=== PATIENT | male | born 1955 | race Hispanic/Latino ===

== ENCOUNTER → 2019-06-04 | Outpatient (CLI) | payer MEDICARE ==
--- NOTE | 2019-06-04 16:30 | Diagnostic Imaging Report ---
EXAM: Renal Ultrasound INDICATION: ^MICROSCOPIC HEMATURIA COMPARISON: None TECHNIQUE: Transverse and longitudinal images of the kidneys and bladder were obtained. FINDINGS: Right Kidney: Length: 12.0 cm Appearance: Normal echogenicity. Collecting system: No hydronephrosis Stones: None Cyst/Mass: None Left Kidney: Length: 11.8 cm Appearance: Normal echogenicity. Collecting system: No hydronephrosis Stones: None Cyst/Mass: None Bladder and Prostate: There is increased echogenicity and irregular appearance of the bladder mucosa without focal mass or stone. The prostate is enlarged, measuring 7.3 x 4.5 x 6.1 cm and bulges into the posterior bladder. Estimated prevoid bladder volume of 249.3 cc. Bilateral ureteral jets seen. IMPRESSION: No hydronephrosis or renal calculi. Enlarged prostate, bulging into the posterior bladder. Increased echogenicity and irregular appearance of the bladder mucosa without focal mass or stone. Signed by: Pavel Mendez MD on 06/04/2019 4:26 PM
== END ==
LOC: US 15:03
PROVIDERS: ATTEND Urology
DX: R31.21 Asymptomatic microscopic hematuria (principal)
CPT/HCPCS: 76770